=== PATIENT | female | born 1995 | race American Indian/Alaskan Native ===

== ENCOUNTER 2018-10-13 11:32 | Outpatient (CLI) | payer MEDICAID, OTHER ==
--- NOTE | 2018-10-13 13:33 | Ultrasound Report ---
ULTRASOUND PELVIC COMPLETE ULTRASOUND TRANSVAGINAL HISTORY: Abnormal uterine bleeding for 2-3 months. TECHNIQUE: Transabdominal and transvaginal imaging with color Doppler interrogation. COMPARISON: None. FINDINGS: The uterus is anteverted. The uterus measures 7.3 x 3.5 x 5.0 cm. No evidence for uterine mass. Antonieta l cervix. The endometrium appears slightly atrophic measuring 3.4 mm in thickness. No mass or fluid collection. The right ovary is unremarkable measuring 2.8 x 2.2 x 2.8 cm. The left ovary measures 4.8 x 2.9 x 2.7 cm and contains 2 simple cysts measuring 2.8 cm and 2.0 cm. No pelvic fluid collection is identified. Color Doppler imaging to both adnexa are within normal limi ts. IMPRESSION: Simple left ovarian cysts as described. Slightly atrophic endometrium measuring 3.4 mm. Signer Name: Jerome Garcia Jr, MD Signed: 10/13/2018 1:29 PM Workstation Name: [id number]
== END 2018-10-13 11:33 | disposition home or self-care (01) ==
LOC: US 11:32
PROVIDERS: ATTEND Advanced Practice Midwife
DX: N83.202 Unspecified ovarian cyst, left side (principal); N93.8 Other specified abnormal uterine and vaginal bleeding
CPT/HCPCS: 76830; 76856